=== PATIENT | male | born 1990 | race African-American/Black ===

== ENCOUNTER 2017-04-13 17:54 | Emergency (ER) | payer MEDICAID ==
[~2017-04-13] VITALS: Ht 182.9 cm; Wt 72.0 kg
[2017-04-13] MEDS ORDERED: MORPHINE SULFATE 4 MG/ML CPJ (NOT FOR IM USE) IV STA (22:44)
[2017-04-13] MEDS ORDERED: ONDANSETRON HCL 4MG/2ML VIAL IV STA (22:44)
[2017-04-13] MEDS ORDERED: SODIUM CHLORIDE 0.9% 1,000 ML IV ONE (22:44)
[2017-04-13] MEDS ORDERED: FAMOTIDINE 20MG/2ML VIAL IV ONE (22:45)
[2017-04-13 23:09] LABS: CLARITY URINE CLOUDY (CLEAR); COLOR URINE DARK YELLOW (YELLOW); KETONES URINE 4+ (NEGATIVE); LEUKOCYTE ESTERASE URINE TRACE (NEGATIVE); NITRITE URINE NEGATIVE (NEGATIVE); OCCULT BLOOD URINE NEGATIVE (NEGATIVE); PH URINE 5.5 (4.5-8.0); PROTEIN URINE 2+ (NEGATIVE); SPECIFIC GRAVITY URINE 1.038 (1.005-1.030)
[2017-04-13 23:17] LABS: HEMATOCRIT. 50.6 % (42.0-52.0); HEMOGLOBIN. 17.3 g/dL (14.0-18.0); MEAN CORPUSCULAR VOLUME 87.7 fL (80.0-94.0); MEAN PLATELET VOLUME 8.2 fl (7.4-10.4); PLATELET 224 x1000/uL (130-400); RED BLOOD CELL COUNT 5.77 mill/uL (4.7-6.1); RED CELL DISTRIBUTION WIDTH 14.7 % (11.6-14.6)
[2017-04-13 23:20] LABS: *AMPHETAMINES SCREEN URINE NEGATIVE (NEGATIVE); *BARBITURATES SCREEN URINE NEGATIVE (NEGATIVE); *BENZODIAZEPINES SCREEN URINE NEGATIVE (NEGATIVE); *COCAINE SCREEN URINE NEGATIVE (NEGATIVE); CANNABINOID URINE SCREEN PRESUMTIVE POSITIVE (NEGATIVE); METHADONE URINE SCREEN NEGATIVE (NEGATIVE); OPIATES URINE SCREEN NEGATIVE (NEGATIVE); PHENCYCLIDINE URINE SCREEN NEGATIVE (NEGATIVE)
[2017-04-13 23:20] LABS: CHLORIDE 105 mEq/L (98-107)
[2017-04-13 23:23] LABS: CARBON DIOXIDE 21 mEq/L (21-32)
[2017-04-13 23:26] LABS: PLATELET ESTIMATE NORMAL
[2017-04-14 01:58] VITALS: BP 158/90
== END 2017-04-14 02:11 | disposition home or self-care (01) ==
LOC: ER 18:00
DX: R10.84 Generalized abdominal pain (principal); I10 Essential (primary) hypertension
CPT/HCPCS: 36415; 80053; 80305; 81001; 83690; 85025; 96361; 96374; 96375; 99285; J2270; J2405; J3490; J7030; Z7610